=== PATIENT | male | born 1980 | race Caucasian/White ===

== ENCOUNTER 2023-10-12 15:59 | Emergency (ER) | payer BC, SELFPAY ==
[2023-10-12 16:16] VITALS: BP 129/77; PULSE 68; RESP 18; TEMP 36.9; O2SAT 98
[2023-10-12 16:17] VITALS: BP 129/77; PULSE 68; RESP 18; TEMP 36.9; O2SAT 98
--- NOTE | 2023-10-12 16:31 | ED.URI ---
HPI - URI/Sore Throat General Chief Complaint: Upper Respiratory Infection Stated Complaint: congestion,sorethroat,bilateral ear pain Time Seen by Provider: 10/12/23 16:31 Source: patient Mode of arrival: ambulatory Limitations: no limitations History of Present Illness HPI Narrative: 43-year-old male presents with complaint of nasal congestion, sinus pressure cough postnasal drainage, sore throat, sinus headaches for 4-5 days. Patient reports that nasal drainage is green. Also reports right ear pain. Afebrile. Not taking any gqso-fku-[id number] medications to treat his sinus symptoms other than ibuprofen. Denies nausea vomiting diarrhea. Patient reports family members in his house have recently had influenza and strep. All systems reviewed and negative except as noted above. Related Data Home Medications Medication Instructions Recorded Confirmed cholecalciferol (vitamin D3) 25 25 mcg PO DAILY 08/14/20 08/14/20 mcg (1,000 unit) capsule lactobacillus combination no.9 4 PO 08/14/20 08/14/20 billion cell capsule (Adult 50 Plus Probiotic) ascorbate calcium (vitamin C) 500 500 mg PO DAILY 10/12/23 10/12/23 mg tablet Allergies Allergy/AdvReac Type Severity Reaction Status Date / Time No Known Allergies Allergy Verified 10/12/23 16:16 Review of Systems Review of Systems: CONSTITUTIONAL: Denies fever, chills, or sweats. reports fatigue. EYES: Denies visual changes, redness, or discharge. ENT: Reports rhinorrhea, congestion, sore throat, right ear pain CARDIOVASCULAR: Denies chest pain, palpitations, or edema. RESPIRATORY: Reports cough. Denies dyspnea. GASTROINTESTINAL: Denies abdominal pain, nausea, vomiting, or diarrhea. GENITOURINARY: Denies dysuria or hematuria. SKIN: Denies rash or itching. MUSCULOSKELETAL: Denies back pain, joint pain, or myalgia. NEUROLOGIC: Denies headache, numbness, or weakness. PSYCHIATRIC: Denies anxiety or depression. All other systems reviewed are negative, except as documented in HPI. [facility] Family History Family History Other Breast cancer Malignant neoplasm of prostate Pancreas cancer Social History Social History (System 10/10/20 @ 10:30 by Noemy Kerr) Smoking status: Former smoker Smoking end date: 07/20/09 Alcohol intake: current Alcohol use details: consumes 6 beers weekly Substance use: never Substance use type: does not use Gender identity (if verbalized by the patient): Male Comments At time of signature, agree with nursing past medical, surgical, social and family history. There is no relevant family history pertinent to the presenting complaint. Exam Narrative: GENERAL: This is a well-nourished, well-developed patient, in no apparent distress. HEAD: normocephalic, atraumatic. EYES: PERRL. Sclera clear/white. Vision is grossly intact. EARS: External ears normal, auditory canals clear and without drainage, Yellowish fluid with erythema and bulging to right TM. Left TM is normal. No perforation bilaterally. Hearing grossly intact. NOSE: External nose normal with moderate congestion, clear nasal drainage, erythema and swelling to bilateral nares THROAT: Mucous membranes moist, postnasal drainage with mild erythema. No swelling or exudates. NECK: Neck supple, non-tender without lymphadenopathy, masses or thyromegaly. CARDIOVASCULAR: Regular rate and rhythm without murmurs, gallops, or rubs. RESPIRATORY: Clear to auscultation. Breath sounds equal bilaterally. No wheezes, rales, or rhonchi. SKIN: warm, Dry, intact with no suspicious lesions or rash, good texture and turgor. NEURO: awake, alert, and oriented to person, place and time. There were no obvious focal neurologic abnormalities. EXTREMITIES: No joint tenderness, effusion, or edema noted. Course Course Level of Care: Express Care Visit Vital Signs Vital signs: Vital Signs Temperatur
== END 2023-10-12 16:56 | disposition home or self-care (01) ==
PROVIDERS: Emergency Provider Nurse Practitioner Family
DX: J01.90 Acute sinusitis, unspecified (principal); H65.01 Acute serous otitis media, right ear; Z87.891 Personal history of nicotine dependence
CPT/HCPCS: 87081; 87804; 87880; 99213; G0463

== ENCOUNTER 2025-01-19 15:17 | Emergency (ER) | payer BC, SELFPAY ==
--- NOTE | 2025-01-19 15:19 | ED.SKABFB ---
HPI - Skin/Abscess/Foreign Bdy General Chief complaint: Skin/Abscess/Foreign Body Stated complaint: Insect bite On LT Arm Time Seen by Provider: 01/19/25 15:19 Source: patient Mode of arrival: ambulatory Limitations: no limitations History of Present Illness HPI narrative: Reji is a 44-year-old male patient presenting to the clinic today with complaints of a insect sting to his left posterior upper arm x2 days. He reports he was stung by wasps. Area is swollen, red, and itching. He denies any fevers, chills, body aches. He denies any tongue swelling, drooling, difficulty breathing, difficulty swallowing, shortness of breath, or chest pain. Has not tried any ubna-ciz-arvvzry treatment. Related Data Home Medications ?Medication ?Instructions ?Recorded ?Confirmed ?Last Taken ?Type lactobacillus combination no.9 4 PO 08/14/20 03/08/24 Unknown History billion cell capsule (Adult 50 Plus Probiotic) ascorbate calcium (vitamin C) 500 500 mg PO DAILY 10/12/23 03/08/24 Unknown History mg tablet Allergies Allergy/AdvReac Type Severity Reaction Status Date / Time No Known Allergies Allergy Verified 01/19/25 15:22 Review of Systems Review of Systems: Pertinent positives per HPI. Patient denies any fever, chills, headache, visual changes, dizziness, cough, runny nose, sore throat, shortness of breath, chest pain, palpitations, nausea, vomiting, diarrhea, constipation, abdominal pain, or any urinary issues. PMFSH Past Medical History Medical History Right tibial fracture Hx of gastroesophageal reflux (GERD) Surgical History Surgical History H/O rhinoplasty Family History Family History Mother Breast cancer Father Pancreatic cancer Grandparent Heart disease Grandparent Alcoholism Grandparent Diabetes mellitus Cancer Other Malignant neoplasm of prostate Social History Social History Smoking status: Former smoker Smoking end date: 07/20/09 Alcohol intake: current Alcohol use details: consumes 6 beers weekly Substance use: never Substance use type: does not use Do You Feel Safe in your Home?: Yes Lack of Transportation: No Lack of Food: Never True Current Housing: I Have Housing Concerned About Future Housing: No Difficulty Paying Gas/Electric Bills: No Difficulty Paying for Meds: No Currently Unemployed: YES Education: Trade/Vocational Certificate Living arrangements: with family Occupation/Education: occupation Gender identity (if verbalized by the patient): Male Spiritual care concerns: No Agree to blood products: Yes Comments At the time of my signature, I reviewed and agree with the nursing past medical, surgical, social, and family history. There is no relevant family history pertinent to the patient complaint. Exam Narrative: General: Well-developed, well nourished, in no apparent distress Head: Normocephalic, atraumatic. Cardio: Regular rate and rhythm, s1 and s2 normal, no murmur appreciated. Resp: Clear to auscultation bilaterally, no rhonchi, rales, wheezing or rubs. Integumentary: [place], warm, and dry, wasp sting to the left posterior upper arm with localized itching, induration, redness, swelling, and erythema. No drainage or palpable abscess Course Course Emergency Course: Portions of this record may have been created with voice recognition software. Level of Care: Express Care Visit Vital Signs Vital signs: Vital Signs Temperature 36.4 C 01/19/25 15:26 Pulse Rate 70 01/19/25 15:26 Respiratory Rate 16 01/19/25 15:26 Blood Pressure 126/79 01/19/25 15:26 Pulse Oximetry 99 01/19/25 15:26 Temperature 36.4 C 01/19/25 15:26 Pulse Rate 70 01/19/25 15:26 Respiratory Rate 16 01/19/25 15:26 Blood Pressure 126/79 01/19/25 15:26 Pulse Oximetry 99 01/19/25 15:26 Vital signs reviewed MDM - Skin/Abscess/Foreign Bdy MDM Narrative Medical decision making narrative: At the time of visit patient is resting comfortably on the exam table. Patient appears to be nontoxic. Plan: I suspect patient has allergic reaction to a wasp sting. Prescription for prednisone and triamcinolone cream was sent to the pharmacy. Supportive measures were discussed with the patient and they voiced understanding discharge instructions and agrees to treatment plan. Return precautions reviewed Differential Diagnosis Differential diagnosis: Likely abscess of skin or subcutaneous tissue, viral exanthem, dermatophytosis, urticaria, herpes zoster, allergic reaction to drug, cellulitis, eczema, insect bites, impetigo and contact dermatitis Discharge Plan Discharge Clinical Impression: Allergic reaction to wasp sting Patient Disposition: Home Condition: Stable Instructions: Antibiotic Form, Insect Bite or Sting (ED), General Allergic Reaction (ED) Additional Instructions: Apply triamcinolone cream as directed Take prednisone as directed Avoid scratching as this can cause a secondary infection May take Benadryl 25-50mg every 6 hours as needed for itching. May take Tylenol/Motrin for pain Follow up with your PCP in 3-5 days if symptoms persist or sooner if they worsen Go to the Emergency Room if symptoms worsen- fever, rash spreading with treatment, shortness of breath, tongue swelling, drooling, or chest pain Patient Language: Spanish Prescriptions: New prednisone 20 mg tablet 40 mg PO DAILY 5 Days Qty: 10 0RF triamcinolone acetonide 0.1 % cream 1 applic topical BID 7 Days Qty: 30 0RF No Action ascorbate calcium (vitamin C) 500 mg Tablet 500 mg PO DAILY Adult 50 Plus Probiotic 4 billion cell capsule PO Follow-up/Referrals: UNKNOWN,DOCTOR [Non-Staff] - Time of Disposition: 15:29 Quality NIHSS Nursing Documentation ED NIHSS nursing documentation: reviewed/agree
--- OUTSIDE RECORDS SUMMARY | 2025-01-19 15:20 | XMS_ITS | Clinical Summary ---
Author Organization [facility] Address [address] [place] [address] Phone Care Team Providers Care Fish And Wildlife Biologist Name Role Phone Unavailable Primary Care Provider Unavailabl e Social History Tobacco Use Types Packs/Day Years Used Date Smoking Tobacco: Never Assessed Sex and Gender Information Value Date Recorded Sex Assigned at Not on file Legal Sex Male 1:24 PM CDT Gender Identity Not on file Sexual Orientation Not on file Plan of Treatment Health Maintenance Due Date Last Done Comments DTAP/TDAP/TD VACCINES (1 - Tdap) 1999 HEPATITIS B VACCINES (1 of 3 - 19+ 3-dose series) 1999 INFLUENZA VACCINE (#1) 2025 HPV VACCINES Aged Out No longer eligi ble based on patient's age to complete this topic
--- OUTSIDE RECORDS SUMMARY | 2025-01-19 15:20 | XMS_ITS | Clinical Summary ---
Author Organization [facility] Address [address] [place] [id number] Care Team Providers Care Monotype Mechanic Name Role Phone Unavailable Primary Care Provider Unavailabl e Social History Tobacco Use Types Packs/Day Years Used Date Smoking Tobacco: Never Assessed Sex and Gender Information Value Date Recorded Sex Assigned at Not on file Legal Sex Male 4:53 PM CDT Gender Identity Not on file Sexual Orientation Not on file Plan of Treatment Health Maintenance Due Date Last Done Comments Annual Physical 1983 Hepatitis C 1998 DTaP, Tdap and Td Vaccines ( 1 - Tdap) 1999 Hepatitis B Vaccines (1 of 3 - 19+ 3-dose series) 1999 COVID-19 Vaccine (2023-2 5 season) 2024 HPV Vaccines Aged Out No longer eligi ble based on patient's age to complete this topic Meningococcal B Vaccine Aged Out No l onger eligible based on patient's age to complete this topic Meningococcal Vaccine Aged Out No audrey андрей eligible based on patient's age to complete this topic Pneumococcal Vaccine: Pediat rics (0 to 5 Years) and At-Risk Patients (6 to 49 Years) Aged Out No longer eligible b ased on patient's age to complete this topic RSV Immunizations Under 20 Months Aged Out No longer eligible based on patient's age to complete this topic
[2025-01-19 15:26] VITALS: BP 126/79; PULSE 70; RESP 16; TEMP 36.4; O2SAT 99
== END 2025-01-19 15:33 | disposition home or self-care (01) ==
PROVIDERS: Emergency Provider Nurse Practitioner Family
DX: T63.461A Toxic effect of venom of wasps, accidental (unintentional), initial encounter (principal); K21.9 Gastro-esophageal reflux disease without esophagitis; Z87.891 Personal history of nicotine dependence
CPT/HCPCS: 99213; G0463